=== PATIENT | female | born 1965 | race Caucasian/White ===

== ENCOUNTER 2017-08-25 08:40 | Inpatient (IN) | payer BC ==
[~2017-08-25] VITALS: Ht 160 cm; Wt 64.0 kg
[~2017-08-25 08:40] MED LIST: VALS320T2
[2017-08-25] MEDS ORDERED: SODIUM CHLORIDE 0.9% 1,000ML IVBOLUS ONE (09:30)
[2017-08-25] MEDS ORDERED: METOCLOPRAMIDE 5 MG/ML, 2ML IVPush ONE (09:30)
[2017-08-25] MEDS ORDERED: SODIUM CHLORIDE FLUSH 10ML SYR IVF ONE (09:30)
[2017-08-25] MEDS ORDERED: LORazepam 2 MG/ML, 1ML IVPush ONE ×2 (09:30→11:30)
[2017-08-25] MEDS ORDERED: METOCLOPRAMIDE 5 MG/ML, 2ML ONE (09:42)
[2017-08-25] MEDS ORDERED: LORazepam 2 MG/ML, 1ML ONE (09:43)
[2017-08-25] MEDS ORDERED: DIPHENHYDRAMINE 50 MG/ML, 1ML ONE (09:43)
[2017-08-25 09:51] LABS: BASOPHILS # (AUTO) 0.01 x10^3/uL (0-0.1); BASOPHILS % (AUTO) 0 % (0-1); EOSINOPHILS # (AUTO) 0.03 x10^3/uL (0-0.4); EOSINOPHILS % (AUTO) 0 % (1-7); LYMPHOCYTES # (AUTO) 0.64 x10^3/uL (1-3.4); LYMPHOCYTES % (AUTO) 7 % (22-44); MD NO; MEAN CORPUSCULAR HEMOGLOBIN 36.9 pg (27.0-34.8); MEAN CORPUSCULAR HGB CONC 34.8 g/dL (32.4-35.8); MEAN CORPUSCULAR VOLUME 106.2 fL (80-100); MEAN PLATELET VOLUME 7.6 fL (7.4-10.4); MONOCYTES # (AUTO) 0.77 x10^3/uL (0.2-0.8); MONOCYTES % (AUTO) 8 % (2-9); NEUTROPHILS # (AUTO) 8.54 x10^3/uL (1.8-6.8); NEUTROPHILS % (AUTO) 86 % (42-75); PLATELET COUNT 135 x10^3/uL (130-400); RED BLOOD COUNT 4.16 x10^6/uL (3.82-5.3); RED CELL DISTRIBUTION WIDTH 12.7 % (9.6-15.2)
[2017-08-25 10:00] LABS: ALANINE AMINOTRANSFERASE 72 U/L (12-78); ALBUMIN 4.1 g/dL (3.4-5.0); ANION GAP 26 mmol/L (5-15); CALCIUM 9.1 mg/dL (8.5-10.1); CHLORIDE 86 mmol/L (98-107); CREATININE 1.04 mg/dL (0.55-1.02)
[2017-08-25 10:01] LABS: SALICYLATE LEVEL < 1.7 mg/dL (2.8-20.0)
[2017-08-25 10:05] LABS: ACETAMINOPHEN < 2 mcg/mL (10-30); ALKALINE PHOSPHATASE 103 U/L (45-117); BILIRUBIN,TOTAL 1.5 mg/dL (0.2-1.0); TOTAL PROTEIN 8.8 g/dL (6.4-8.2); TROPONIN I < 0.015 ng/mL (0.000-0.045)
[2017-08-25 11:07] LABS: MICROSCOPIC AUTO
[2017-08-25 11:08] LABS: CULTURE INDICATED? YES
[2017-08-25 11:18] LABS: AMPHETAMINE SCREEN, URINE Negative (Negative); BARBITURATE SCREEN, URINE Negative (Negative); BENZODIAZEPINE SCREEN, URINE Negative (Negative); CANNABINOID SCREEN, URINE Negative (Negative); COCAINE SCREEN, URINE Negative (Negative); METHADONE SCREEN, URINE Negative (Negative); OPIATE SCREEN, URINE Negative (Negative)
[2017-08-25] MEDS ORDERED: LACTATED RINGERS 1,000 ML IVBOLUS ONE (11:30)
[2017-08-25 12:21] VITALS: BP 123/78
[2017-08-25] MEDS ORDERED: ONDANSETRON ODT 4 MG PO PRN (13:30)
[2017-08-25] MEDS ORDERED: LORazepam 2 MG/ML, 1ML IV PRN ×5 (13:30)
[2017-08-25] MEDS ORDERED: LORazepam 0.5MG TABLET PO PRN (13:30)
[2017-08-25] MEDS ORDERED: LABETALOL 5MG/ML, 20ML IVPush PRN (13:30)
[2017-08-25] MEDS ORDERED: LORazepam 1MG TABLET PO PRN ×4 (13:30)
[2017-08-25] MEDS ORDERED: ONDANSETRON 2MG/ML, 2ML IVPush PRN (13:30)
[2017-08-25] MEDS ORDERED: cloniDINE 0.1MG PATCH TD SCH (14:00)
[2017-08-25] MEDS: RANITIDINE 50 MG in SODIUM CHLORIDE 0.9% 100 ML IV SCH ×2 (14:43→22:41)
[2017-08-25] MEDS: POTASSIUM CHLORIDE 20 MEQ, MAGNESIUM SULFATE 1 GM, FOLIC ACID 1 MG, THIAMINE 100 MG, MV... IV SCH (14:43)
[2017-08-25 14:57] VITALS: BP 122/81
[2017-08-25] MEDS: ENOXAPARIN 40 MG/0.4 ML SQ SCH (16:27)
[2017-08-25] MEDS: GABAPENTIN 100 MG CAPSULE PO SCH ×2 (16:28→22:41)
[2017-08-25] MEDS ORDERED: POTASSIUM CHLORIDE 20 MEQ TAB.ER.PRT PO ONE (17:00)
[2017-08-25 18:18] LABS: ALBUMIN 3.3 g/dL (3.4-5.0); ANION GAP 22 mmol/L (5-15); CALCIUM 8.2 mg/dL (8.5-10.1); CHLORIDE 94 mmol/L (98-107); CREATININE 0.83 mg/dL (0.55-1.02)
[2017-08-25 18:40] VITALS: BP 131/85
[2017-08-25] MEDS: CEFTRIAXONE PMX 1GM/50ML 50 ML IV SCH (18:44)
[2017-08-25] MEDS: METOPROLOL TARTRATE 25 MG TABLET PO SCH ×2 (18:45→18:49)
[2017-08-25] MEDS ORDERED: FAMOTIDINE 20 MG/2 ML IVPush SCH (21:00)
[2017-08-26 01:59] VITALS: BP 121/80
[2017-08-26 05:09] LABS: BASOPHILS # (AUTO) 0.03 x10^3/uL (0-0.1); BASOPHILS % (AUTO) 0 % (0-1); EOSINOPHILS # (AUTO) 0.06 x10^3/uL (0-0.4); EOSINOPHILS % (AUTO) 1 % (1-7); LYMPHOCYTES # (AUTO) 0.97 x10^3/uL (1-3.4); LYMPHOCYTES % (AUTO) 11 % (22-44); MD NO; MEAN CORPUSCULAR HEMOGLOBIN 36.2 pg (27.0-34.8); MEAN CORPUSCULAR HGB CONC 34.3 g/dL (32.4-35.8); MEAN CORPUSCULAR VOLUME 105.6 fL (80-100); MONOCYTES # (AUTO) 0.86 x10^3/uL (0.2-0.8); MONOCYTES % (AUTO) 10 % (2-9); NEUTROPHILS # (AUTO) 6.56 x10^3/uL (1.8-6.8); NEUTROPHILS % (AUTO) 77 % (42-75); PLATELET COUNT 125 x10^3/uL (130-400); RED BLOOD COUNT 3.77 x10^6/uL (3.82-5.3); RED CELL DISTRIBUTION WIDTH 12.8 % (9.6-15.2)
[2017-08-26 05:10] LABS: ALANINE AMINOTRANSFERASE 50 U/L (12-78); ALBUMIN 3.5 g/dL (3.4-5.0); ANION GAP 15 mmol/L (5-15); CALCIUM 8.5 mg/dL (8.5-10.1); CHLORIDE 98 mmol/L (98-107); CREATININE 1.19 mg/dL (0.55-1.02)
[2017-08-26 05:12] LABS: ALKALINE PHOSPHATASE 79 U/L (45-117); BILIRUBIN,TOTAL 1.2 mg/dL (0.2-1.0); TOTAL PROTEIN 7.4 g/dL (6.4-8.2)
[2017-08-26 06:13] VITALS: BP 113/63
[2017-08-26] MEDS: RANITIDINE 50 MG in SODIUM CHLORIDE 0.9% 100 ML IV SCH (06:17)
[2017-08-26] MEDS: METOPROLOL TARTRATE 25 MG TABLET PO SCH ×2 (06:17→18:44)
[2017-08-26 06:38] VITALS: BP 136/91
[2017-08-26] MEDS ORDERED: MAGNESIUM SULFATE PMX 4GM/100M 100 ML IV ONE (07:00)
[2017-08-26 07:45] LABS: FREE T4 (FREE THYROXINE) 0.95 ng/dL (0.76-1.46)
[2017-08-26 07:56] LABS: FOLATE LEVEL > 20.0 ng/mL (3.1-17.5)
[2017-08-26] MEDS ORDERED: SODIUM PHOSPHATE 4 MEQ/ML IV SCH (08:00)
[2017-08-26] MEDS ORDERED: SODIUM PHOSPHATE 30 MMOL in SODIUM CHLORIDE 0.9% 500 ML IV ONE (08:30)
[2017-08-26] MEDS ORDERED: POTASSIUM PHOSPHATE 44 MEQ in SODIUM CHLORIDE 0.9% 500 ML IV ONE (09:30)
[2017-08-26] MEDS: GABAPENTIN 100 MG CAPSULE PO SCH ×3 (09:47→21:57)
[2017-08-26] MEDS: OMEPRAZOLE 20 MG CAPSULE.DR PO SCH (09:47)
[2017-08-26 12:36] VITALS: BP 126/87
[2017-08-26] MEDS: CEFTRIAXONE PMX 1GM/50ML 50 ML IV SCH (17:08)
[2017-08-26] MEDS: ENOXAPARIN 40 MG/0.4 ML SQ SCH (17:18)
[2017-08-26 19:16] VITALS: BP 131/86
[2017-08-26] MEDS: POTASSIUM CHLORIDE 20 MEQ, MAGNESIUM SULFATE 1 GM, FOLIC ACID 1 MG, THIAMINE 100 MG, MV... IV SCH (20:20)
[2017-08-27 01:14] VITALS: BP 130/93
[2017-08-27 05:12] VITALS: BP 143/92
[2017-08-27] MEDS: METOPROLOL TARTRATE 25 MG TABLET PO SCH ×2 (05:15→17:19)
[2017-08-27 05:54] LABS: BASOPHILS # (AUTO) 0.01 x10^3/uL (0-0.1); BASOPHILS % (AUTO) 0 % (0-1); EOSINOPHILS # (AUTO) 0.15 x10^3/uL (0-0.4); EOSINOPHILS % (AUTO) 3 % (1-7); LYMPHOCYTES # (AUTO) 0.76 x10^3/uL (1-3.4); LYMPHOCYTES % (AUTO) 17 % (22-44); MD NO; MEAN CORPUSCULAR HEMOGLOBIN 36.1 pg (27.0-34.8); MEAN CORPUSCULAR HGB CONC 34.3 g/dL (32.4-35.8); MEAN CORPUSCULAR VOLUME 105.2 fL (80-100); MONOCYTES % (AUTO) 11 % (2-9); NEUTROPHILS # (AUTO) 3.18 x10^3/uL (1.8-6.8); NEUTROPHILS % (AUTO) 69 % (42-75); PLATELET COUNT 107 x10^3/uL (130-400); RED BLOOD COUNT 3.25 x10^6/uL (3.82-5.3); RED CELL DISTRIBUTION WIDTH 12.9 % (9.6-15.2)
[2017-08-27 06:04] LABS: CHLORIDE 103 mmol/L (98-107)
[2017-08-27 06:18] LABS: ALANINE AMINOTRANSFERASE 38 U/L (12-78); ALBUMIN 2.8 g/dL (3.4-5.0); ALKALINE PHOSPHATASE 67 U/L (45-117); ANION GAP 11 mmol/L (5-15); BILIRUBIN,TOTAL 0.9 mg/dL (0.2-1.0); CALCIUM 7.9 mg/dL (8.5-10.1); CREATININE 0.73 mg/dL (0.55-1.02); TOTAL PROTEIN 6.4 g/dL (6.4-8.2)
[2017-08-27 08:00] VITALS: BP 144/98
[2017-08-27] MEDS: GABAPENTIN 100 MG CAPSULE PO SCH ×2 (08:09→17:19)
[2017-08-27] MEDS: OMEPRAZOLE 20 MG CAPSULE.DR PO SCH (08:09)
[2017-08-27] MEDS ORDERED: MULTIVITAMINS/MINERALS TABLET PO SCH ×2 (09:00→09:30)
[2017-08-27] MEDS ORDERED: SODIUM PHOSPHATE 30 MMOL in SODIUM CHLORIDE 0.9% 500 ML IV ONE (09:30)
[2017-08-27] MEDS ORDERED: THIAMINE 100MG TABLET PO SCH (09:30)
[2017-08-27] MEDS ORDERED: FOLIC ACID 1 MG TABLET PO SCH (09:30)
[2017-08-27] MEDS: POTASSIUM CHLORIDE 20 MEQ TAB.ER.PRT PO SCH ×2 (10:31→17:19)
[2017-08-27] MEDS: CEFDINIR 300 MG CAPSULE PO SCH ×2 (10:31→17:19)
[2017-08-27] MEDS ORDERED: FOLI-17 PO (13:36)
[2017-08-27] MEDS ORDERED: THIA100T6 PO (13:36)
[2017-08-27] MEDS ORDERED: METO25TA35 PO (13:36)
[2017-08-27] MEDS ORDERED: MULT-484 PO (13:36)
[2017-08-27] MEDS ORDERED: POTASSIUM CHLORIDE 20 MEQ TAB.ER.PRT PO SCH (17:00)
[2017-08-27] MEDS: ENOXAPARIN 40 MG/0.4 ML SQ SCH (17:00)
== END 2017-08-27 17:42 | disposition home or self-care (01) | DRG 897 ==
LOC: ED 10:02 → EDIP 11:12 → 4WST 11:58
PROVIDERS: ADMIT Internal Medicine; ATTEND Internal Medicine
DX: F10.229 Alcohol dependence with intoxication, unspecified (principal); E87.2 Acidosis; E87.8 Other disorders of electrolyte and fluid balance, not elsewhere classified; E44.0 Moderate protein-calorie malnutrition; E83.39 Other disorders of phosphorus metabolism; I31.3 Pericardial effusion (noninflammatory); E87.1 Hypo-osmolality and hyponatremia; N39.0 Urinary tract infection, site not specified; W18.30XA Fall on same level, unspecified, initial encounter; F10.239 Alcohol dependence with withdrawal, unspecified; D75.89 Other specified diseases of blood and blood-forming organs; E86.0 Dehydration; E87.6 Hypokalemia; I10 Essential (primary) hypertension; K21.9 Gastro-esophageal reflux disease without esophagitis; K76.0 Fatty (change of) liver, not elsewhere classified; F41.8 Other specified anxiety disorders; R45.4 Irritability and anger; R74.0 Nonspecific elevation of levels of transaminase and lactic acid dehydrogenase [LDH]; R79.89 Other specified abnormal findings of blood chemistry; Z68.25 Body mass index [BMI] 25.0-25.9, adult; Z80.52 Family history of malignant neoplasm of bladder; Z82.49 Family history of ischemic heart disease and other diseases of the circulatory system; Z83.3 Family history of diabetes mellitus
CPT/HCPCS: 36415; 70450; 71045; 76700; 80048; 80053; 80307; 80329; 81001; 82040; 82140; 82607; 82746; 83735; 84100; 84439; 84443; 84484; 85025; 87086; 93005; 93306; 93880; 99285; J0696; J1650; J2780; J3411; J3475; J3480; J7042; Q0162; G0480; J2060; J2765; J7030; J7040; J7120

== ENCOUNTER 2019-04-24 18:31 | Inpatient (IN) | payer BC ==
[~2019-04-24] VITALS: Ht 160 cm; Wt 66.4 kg
[~2019-04-24 18:31] MED LIST changes: +FOLI-17 PO; +METO25TA35 PO; +MULT-484 PO; +THIA100T67 PO
[2019-04-24] MEDS ORDERED: PANTOPRAZOLE 80 MG in SODIUM CHLORIDE 0.9% 50 ML IVPB ONE (18:54)
[2019-04-24] MEDS ORDERED: ONDANSETRON 2MG/ML, 2ML ONE (18:59)
[2019-04-24] MEDS ORDERED: THIAMINE 100 MG in SODIUM CHLORIDE 0.9% 50 ML IVPB ONE (19:00)
[2019-04-24] MEDS ORDERED: SODIUM CHLORIDE 0.9% 1,000ML IVBOLUS ONE (19:00)
[2019-04-24] MEDS ORDERED: FAMOTIDINE 20 MG/2 ML ONE (19:00)
[2019-04-24] MEDS ORDERED: LORazepam 2 MG/ML, 1ML ONE ×2 (19:00→19:50)
[2019-04-24] MEDS ORDERED: PANTOPRAZOLE 80 MG in SODIUM CHLORIDE 0.9% 100 ML IV SCH (19:00)
[2019-04-24] MEDS ORDERED: SODIUM CHLORIDE FLUSH 10ML SYR IVF ONE (19:00)
[2019-04-24] MEDS ORDERED: ONDANSETRON 2MG/ML, 2ML IVPush ONE (19:00)
[2019-04-24] MEDS ORDERED: FAMOTIDINE 20 MG/2 ML IVPush ONE (19:00)
[2019-04-24] MEDS: LORazepam 2 MG/ML, 1ML IVPush PRN ×3 (19:05→21:28)
[2019-04-24 19:14] LABS: INTERNATIONAL NORMALIZED RATIO 1.1 (0.93-1.1); PROTHROMBIN TIME 11.5 Seconds (9.6-11.5)
[2019-04-24 19:15] LABS: ALANINE AMINOTRANSFERASE 91 U/L (12-78); ALBUMIN 3.8 g/dL (3.4-5.0); ANION GAP 22 mmol/L (5-15); CALCIUM 8.6 mg/dL (8.5-10.1); CHLORIDE 85 mmol/L (98-107); CREATININE 0.99 mg/dL (0.55-1.02)
[2019-04-24 19:17] LABS: ALKALINE PHOSPHATASE 91 U/L (45-117); BILIRUBIN,TOTAL 1.6 mg/dL (0.2-1.0); TOTAL PROTEIN 7.6 g/dL (6.4-8.2)
[2019-04-24 19:18] LABS: MEAN CORPUSCULAR HEMOGLOBIN 35.4 pg (27.0-34.8); MEAN PLATELET VOLUME 7.6 fL (7.4-10.4); PLATELET COUNT 77 x10^3/uL (130-400); RED CELL DISTRIBUTION WIDTH 13.9 % (9.6-15.2)
[2019-04-24 19:21] LABS: BASOPHILS # (AUTO) 0.01 x10^3/uL (0-0.1); BASOPHILS % (AUTO) 0 % (0-1); EOSINOPHILS # (AUTO) 0.04 x10^3/uL (0-0.4); EOSINOPHILS % (AUTO) 1 % (1-7); LYMPHOCYTES # (AUTO) 0.33 x10^3/uL (1-3.4); LYMPHOCYTES % (AUTO) 5 % (22-44); MD MORPH REVIEW ONLY; MONOCYTES # (AUTO) 0.49 x10^3/uL (0.2-0.8); MONOCYTES % (AUTO) 7 % (2-9); NEUTROPHILS # (AUTO) 6.54 x10^3/uL (1.8-6.8); NEUTROPHILS % (AUTO) 88 % (42-75)
[2019-04-24 19:22] LABS: <PLATELET ESTIMATE> DECREASED; <PLT MORPHOLOGY> NORMAL PLT MORPH
[2019-04-24] MEDS ORDERED: NS + 40MEQ KCL 1,000 ML IV ONE (19:33)
--- NOTE | 2019-04-24 19:41 | NUR ---
REPORT RECEIVED FROM BREAK NURSE. THIS IS A 53 YO FEMALE BIBA FOR NEAR SYNCOPAL EPISODE. PER BREAK RN, PATIENT HAS DARK STOOLS AND VOMITING BLOOD. PATIENT STATES LAST DRINK WAS AT 1600, PATIENT APPEARS SHAKEY. PATIENT IS A&0X4, RESPIRATIONS ARE EVEN AND UNLABORED, PLACED ON SWITCHBOARD INSTALLER, SINUS TACHYCARDIA NOTED, PATIENT'S SKIN IS COOL. VSS AT THIS TIME. CONTINUOUS SPO2 AT 96%, CYCLE BP Q1HR.
--- NOTE | 2019-04-24 20:02 | NUR ---
PATIENT MEDICATED PER EMAR, TOELRATED WELL. DENIES NEEDS AT THIS TIME, CALL LIGHT IN REACH.
--- NOTE | 2019-04-24 20:09 | NUR ---
REPORT GIVEN TO [facility]. PLAN OF CARE DISCUSSED.
[2019-04-24] MEDS ORDERED: BISACODYL 10 MG SUPP PR PRN (21:00)
[2019-04-24] MEDS ORDERED: ONDANSETRON ODT 4 MG PO PRN (21:00)
[2019-04-24] MEDS ORDERED: POLYETHYLENE GLYCOL 17 GM PACKET PO PRN (21:00)
[2019-04-24 21:30] VITALS: BP 123/80
[2019-04-24] MEDS ORDERED: MAGNESIUM SULFATE PMX 2GM/50ML 50 ML IV ONE (21:30)
[2019-04-24 22:00] VITALS: BP 123/80
[2019-04-24] MEDS: NS + 40MEQ KCL 1,000 ML IV SCH (22:06)
[2019-04-24] MEDS: THIAMINE 100MG TABLET PO SCH (22:07)
[2019-04-24] MEDS: METOPROLOL TARTRATE 25 MG TABLET PO SCH (22:08)
[2019-04-24] MEDS: PANTOPRAZOLE 80 MG in SODIUM CHLORIDE 0.9% 100 ML IV SCH (22:09)
[2019-04-25] VITALS (11 sets, daily range): BP systolic 117–138; BP diastolic 70–89
[2019-04-25] MEDS: LORazepam 2 MG/ML, 1ML IV PRN ×2 (01:29→12:43)
[2019-04-25] MEDS ORDERED: LORazepam 1MG TABLET PO PRN ×3 (01:30)
[2019-04-25] MEDS ORDERED: LORazepam 0.5MG TABLET PO PRN (01:30)
[2019-04-25] MEDS ORDERED: LORazepam 2 MG/ML, 1ML IV PRN ×2 (01:30)
[2019-04-25 02:05] LABS: MEAN CORPUSCULAR HEMOGLOBIN 35.5 pg (27.0-34.8); MEAN CORPUSCULAR HGB CONC 33.9 g/dL (32.4-35.8); MEAN CORPUSCULAR VOLUME 104.9 fL (80-100); MEAN PLATELET VOLUME 7.5 fL (7.4-10.4); PLATELET COUNT 62 x10^3/uL (130-400); RED BLOOD COUNT 2.56 x10^6/uL (3.82-5.3); RED CELL DISTRIBUTION WIDTH 13.8 % (9.6-15.2)
[2019-04-25 02:15] LABS: ALANINE AMINOTRANSFERASE 70 U/L (12-78); ALBUMIN 3.2 g/dL (3.4-5.0); ANION GAP 14 mmol/L (5-15); CALCIUM 7.7 mg/dL (8.5-10.1); CHLORIDE 94 mmol/L (98-107); CREATININE 1.02 mg/dL (0.55-1.02)
[2019-04-25] MEDS: NS + 40MEQ KCL 1,000 ML IV SCH ×3 (02:16→16:09)
[2019-04-25 02:17] LABS: ALKALINE PHOSPHATASE 71 U/L (45-117); BILIRUBIN,TOTAL 1.7 mg/dL (0.2-1.0); TOTAL PROTEIN 6.4 g/dL (6.4-8.2)
[2019-04-25 02:18] LABS: BASOPHILS # (AUTO) 0.02 x10^3/uL (0-0.1); BASOPHILS % (AUTO) 0 % (0-1); EOSINOPHILS % (AUTO) 0 % (1-7); LYMPHOCYTES # (AUTO) 0.63 x10^3/uL (1-3.4); LYMPHOCYTES % (AUTO) 8 % (22-44); MD SCAN; MONOCYTES # (AUTO) 0.84 x10^3/uL (0.2-0.8); MONOCYTES % (AUTO) 10 % (2-9); NEUTROPHILS # (AUTO) 6.66 x10^3/uL (1.8-6.8); NEUTROPHILS % (AUTO) 82 % (42-75)
[2019-04-25] MEDS: PANTOPRAZOLE 80 MG in SODIUM CHLORIDE 0.9% 100 ML IV SCH ×2 (05:04→16:09)
[2019-04-25] MEDS: METOPROLOL TARTRATE 25 MG TABLET PO SCH ×2 (05:18→18:04)
[2019-04-25 08:30] LABS: MEAN CORPUSCULAR HEMOGLOBIN 35.2 pg (27.0-34.8); MEAN CORPUSCULAR HGB CONC 34.4 g/dL (32.4-35.8); MEAN CORPUSCULAR VOLUME 102.3 fL (80-100); MEAN PLATELET VOLUME 8.2 fL (7.4-10.4); PLATELET COUNT 66 x10^3/uL (130-400); RED BLOOD COUNT 2.38 x10^6/uL (3.82-5.3); RED CELL DISTRIBUTION WIDTH 14.1 % (9.6-15.2)
[2019-04-25] MEDS: SENNA/DOCUSATE TABLET PO SCH (09:00)
[2019-04-25] MEDS ORDERED: OCTREOTIDE 50 MCG/ML, 1ML (0.05MG/ML) IVPush ONE (09:00)
[2019-04-25 09:18] LABS: BASOPHILS # (AUTO) 0.01 x10^3/uL (0-0.1); BASOPHILS % (AUTO) 0 % (0-1); EOSINOPHILS % (AUTO) 0 % (1-7); LYMPHOCYTES # (AUTO) 0.75 x10^3/uL (1-3.4); LYMPHOCYTES % (AUTO) 11 % (22-44); MD SCAN; MONOCYTES # (AUTO) 0.75 x10^3/uL (0.2-0.8); MONOCYTES % (AUTO) 11 % (2-9); NEUTROPHILS # (AUTO) 5.44 x10^3/uL (1.8-6.8); NEUTROPHILS % (AUTO) 78 % (42-75)
[2019-04-25] MEDS: OCTREOTIDE 500 MCG in SODIUM CHLORIDE 0.9% 249 ML IV SCH ×2 (09:47→22:05)
[2019-04-25 12:08] LABS: BASOPHILS # (AUTO) 0.02 x10^3/uL (0-0.1); BASOPHILS % (AUTO) 0 % (0-1); EOSINOPHILS # (AUTO) 0.01 x10^3/uL (0-0.4); EOSINOPHILS % (AUTO) 0 % (1-7); LYMPHOCYTES # (AUTO) 0.83 x10^3/uL (1-3.4); LYMPHOCYTES % (AUTO) 12 % (22-44); MD NO; MEAN CORPUSCULAR HGB CONC 34.2 g/dL (32.4-35.8); MEAN CORPUSCULAR VOLUME 102.4 fL (80-100); MEAN PLATELET VOLUME 8.1 fL (7.4-10.4); MONOCYTES # (AUTO) 0.75 x10^3/uL (0.2-0.8); MONOCYTES % (AUTO) 10 % (2-9); NEUTROPHILS # (AUTO) 5.58 x10^3/uL (1.8-6.8); NEUTROPHILS % (AUTO) 78 % (42-75); PLATELET COUNT 72 x10^3/uL (130-400); RED BLOOD COUNT 2.26 x10^6/uL (3.82-5.3); RED CELL DISTRIBUTION WIDTH 13.9 % (9.6-15.2)
[2019-04-25] MEDS ORDERED: FENTANYL PF 100 MCG/2ML ONE (13:09)
[2019-04-25] MEDS ORDERED: MIDAZOLAM 1 MG/ML, 2ML ONE (13:09)
[2019-04-25] MEDS ORDERED: PROPOFOL 50 ML ONE (13:10)
[2019-04-25] MEDS ORDERED: EPINEPHRINE SYRINGE 0.1 MG/ML, 10ML ONE (13:59)
[2019-04-25] MEDS ORDERED: METOPROLOL 1 MG/ML, 5ML IV PRN (14:00)
[2019-04-25] MEDS ORDERED: FENTANYL PF 100 MCG/2ML IV PRN (14:00)
[2019-04-25] MEDS ORDERED: HYDROmorphone 2 MG/ML, 1ML IVPush PRN (14:00)
[2019-04-25] MEDS ORDERED: PROMETHAZINE 25 MG/ML, 1ML IV PRN (14:00)
[2019-04-25] MEDS ORDERED: MIDAZOLAM 1 MG/ML, 2ML IV PRN (14:00)
[2019-04-25] MEDS ORDERED: OXYcodone 5 MG/5 ML ORAL.SOL UDC PO PRN (14:00)
[2019-04-25] MEDS ORDERED: MEPERIDINE/PF 25MG/ML,1ML IVPush PRN (14:00)
[2019-04-25 16:14] LABS: MEAN CORPUSCULAR HEMOGLOBIN 35.4 pg (27.0-34.8); MEAN CORPUSCULAR HGB CONC 34.3 g/dL (32.4-35.8); MEAN CORPUSCULAR VOLUME 103.2 fL (80-100); MEAN PLATELET VOLUME 7.5 fL (7.4-10.4); PLATELET COUNT 55 x10^3/uL (130-400); RED BLOOD COUNT 1.96 x10^6/uL (3.82-5.3); RED CELL DISTRIBUTION WIDTH 13.8 % (9.6-15.2)
[2019-04-25 16:26] LABS: BASOPHILS # (AUTO) 0.01 x10^3/uL (0-0.1); BASOPHILS % (AUTO) 0 % (0-1); EOSINOPHILS # (AUTO) 0.01 x10^3/uL (0-0.4); EOSINOPHILS % (AUTO) 0 % (1-7); LYMPHOCYTES # (AUTO) 0.86 x10^3/uL (1-3.4); LYMPHOCYTES % (AUTO) 17 % (22-44); MD SCAN; MONOCYTES # (AUTO) 0.42 x10^3/uL (0.2-0.8); MONOCYTES % (AUTO) 9 % (2-9); NEUTROPHILS % (AUTO) 74 % (42-75)
[2019-04-25] MEDS: FOLIC ACID 1 MG TABLET PO SCH (18:04)
[2019-04-25] MEDS: THIAMINE 100MG TABLET PO SCH ×2 (18:04→21:31)
[2019-04-25] MEDS: MULTIVITAMINS/MINERALS TABLET PO SCH (21:29)
[2019-04-25 23:13] LABS: MEAN CORPUSCULAR HEMOGLOBIN 34.2 pg (27.0-34.8); MEAN CORPUSCULAR HGB CONC 34.2 g/dL (32.4-35.8); MEAN CORPUSCULAR VOLUME 100.2 fL (80-100); MEAN PLATELET VOLUME 8.2 fL (7.4-10.4); PLATELET COUNT 70 x10^3/uL (130-400); RED BLOOD COUNT 2.66 x10^6/uL (3.82-5.3); RED CELL DISTRIBUTION WIDTH 15.7 % (9.6-15.2)
[2019-04-25 23:50] LABS: BASOPHILS # (AUTO) 0.03 x10^3/uL (0-0.1); BASOPHILS % (AUTO) 0 % (0-1); EOSINOPHILS # (AUTO) 0.08 x10^3/uL (0-0.4); EOSINOPHILS % (AUTO) 1 % (1-7); LYMPHOCYTES # (AUTO) 0.68 x10^3/uL (1-3.4); LYMPHOCYTES % (AUTO) 10 % (22-44); MD SCAN; MONOCYTES # (AUTO) 0.44 x10^3/uL (0.2-0.8); MONOCYTES % (AUTO) 7 % (2-9); NEUTROPHILS # (AUTO) 5.43 x10^3/uL (1.8-6.8); NEUTROPHILS % (AUTO) 82 % (42-75)
[2019-04-26] VITALS (7 sets, daily range): BP systolic 114–153; BP diastolic 77–97
[2019-04-26] MEDS: NS + 40MEQ KCL 1,000 ML IV SCH (02:28)
[2019-04-26 03:24] LABS: ANION GAP 6 mmol/L (5-15); CALCIUM 7.9 mg/dL (8.5-10.1); CHLORIDE 107 mmol/L (98-107)
[2019-04-26 03:28] LABS: CREATININE 0.69 mg/dL (0.55-1.02)
[2019-04-26] MEDS: PANTOPRAZOLE 80 MG in SODIUM CHLORIDE 0.9% 100 ML IV SCH (03:31)
[2019-04-26] MEDS: METOPROLOL TARTRATE 25 MG TABLET PO SCH ×4 (06:00→22:22)
[2019-04-26] MEDS: SENNA/DOCUSATE TABLET PO SCH (09:00)
[2019-04-26] MEDS: MULTIVITAMINS/MINERALS TABLET PO SCH (09:17)
[2019-04-26] MEDS: THIAMINE 100MG TABLET PO SCH ×2 (09:17→20:12)
[2019-04-26] MEDS: FOLIC ACID 1 MG TABLET PO SCH (09:17)
[2019-04-26] MEDS: LORazepam 1MG TABLET PO PRN ×2 (09:25→16:26)
[2019-04-26] MEDS: OCTREOTIDE 500 MCG in SODIUM CHLORIDE 0.9% 249 ML IV SCH (11:33)
[2019-04-26] MEDS: SODIUM PHOSPHATE 30 MMOL in SODIUM CHLORIDE 0.9% 500 ML IV SCH ×2 (12:27→22:12)
[2019-04-26] MEDS: NEUTRA PHOS K 250 MG TABLET PO SCH ×3 (12:33→20:12)
[2019-04-26] MEDS ORDERED: PANTOPRAZOLE 40 MG IV IVPush SCH (16:00)
[2019-04-26] MEDS: LORazepam 2 MG/ML, 1ML IV PRN (20:12)
[2019-04-26] MEDS: PANTOPRAZOLE 40 MG IV IVPush SCH (20:13)
[2019-04-26] MEDS ORDERED: NS + 40MEQ KCL 1,000 ML IV SCH (21:24)
[2019-04-27 03:03] VITALS: BP 113/77
[2019-04-27] MEDS: LORazepam 2 MG/ML, 1ML IV PRN ×5 (04:28→16:57)
[2019-04-27 07:08] LABS: ANION GAP 11 mmol/L (5-15); CALCIUM 7.6 mg/dL (8.5-10.1); CHLORIDE 105 mmol/L (98-107)
[2019-04-27 07:12] LABS: % IRON SATURATION 13 % (20-55); ALANINE AMINOTRANSFERASE 94 U/L (12-78); ALKALINE PHOSPHATASE 67 U/L (45-117); BILIRUBIN,TOTAL 1.1 mg/dL (0.2-1.0); CREATININE 0.68 mg/dL (0.55-1.02); IRON LEVEL 31 mcg/dL (50-170); TOTAL IRON BINDING CAPACITY 231 mcg/dL (250-450)
[2019-04-27 08:26] VITALS: BP 152/80
[2019-04-27] MEDS: METOPROLOL TARTRATE 25 MG TABLET PO SCH ×4 (08:55→22:04)
[2019-04-27] MEDS: THIAMINE 100MG TABLET PO SCH ×2 (08:55→22:04)
[2019-04-27] MEDS: FOLIC ACID 1 MG TABLET PO SCH (08:56)
[2019-04-27] MEDS: MULTIVITAMINS/MINERALS TABLET PO SCH (08:57)
[2019-04-27] MEDS: SENNA/DOCUSATE TABLET PO SCH (09:00)
[2019-04-27] MEDS: PANTOPRAZOLE 40 MG IV IVPush SCH ×2 (09:03→21:31)
[2019-04-27] MEDS ORDERED: MAGNESIUM SULFATE PMX 2GM/50ML 50 ML IV ONE (10:00)
[2019-04-27] MEDS: CHLORDIAZEPOXIDE 25 MG CAPSULE PO SCH ×4 (10:20→22:03)
[2019-04-27] MEDS: POTASSIUM CHLORIDE 40 MEQ in D5%-0.9% NACL 1,000 ML IV SCH ×2 (10:23→23:13)
[2019-04-27 12:05] VITALS: BP 128/87
[2019-04-27 16:31] VITALS: BP 137/84
[2019-04-27 20:25] VITALS: BP 139/91
[2019-04-27 22:00] VITALS: BP 130/86
[2019-04-28 00:41] VITALS: BP 139/89
[2019-04-28] MEDS: LORazepam 2 MG/ML, 1ML IV PRN (01:55)
[2019-04-28] MEDS: CHLORDIAZEPOXIDE 25 MG CAPSULE PO SCH ×4 (05:56→21:00)
[2019-04-28 07:41] LABS: ANION GAP 4 mmol/L (5-15); CALCIUM 8.5 mg/dL (8.5-10.1); CHLORIDE 107 mmol/L (98-107); CREATININE 0.59 mg/dL (0.55-1.02)
[2019-04-28 07:51] LABS: MEAN CORPUSCULAR HEMOGLOBIN 34.1 pg (27.0-34.8); MEAN CORPUSCULAR HGB CONC 33.6 g/dL (32.4-35.8); MEAN CORPUSCULAR VOLUME 101.6 fL (80-100); MEAN PLATELET VOLUME 7.4 fL (7.4-10.4); PLATELET COUNT 158 x10^3/uL (130-400); RED BLOOD COUNT 2.73 x10^6/uL (3.82-5.3); RED CELL DISTRIBUTION WIDTH 16.3 % (9.6-15.2)
[2019-04-28 07:52] LABS: BASOPHILS # (AUTO) 0.01 x10^3/uL (0-0.1); BASOPHILS % (AUTO) 0 % (0-1); EOSINOPHILS # (AUTO) 0.29 x10^3/uL (0-0.4); EOSINOPHILS % (AUTO) 5 % (1-7); LYMPHOCYTES # (AUTO) 1.05 x10^3/uL (1-3.4); LYMPHOCYTES % (AUTO) 19 % (22-44); MD SCAN; MONOCYTES # (AUTO) 0.69 x10^3/uL (0.2-0.8); MONOCYTES % (AUTO) 12 % (2-9); NEUTROPHILS # (AUTO) 3.57 x10^3/uL (1.8-6.8); NEUTROPHILS % (AUTO) 64 % (42-75)
[2019-04-28] MEDS: METOPROLOL TARTRATE 25 MG TABLET PO SCH ×3 (08:39→21:00)
[2019-04-28] MEDS: PANTOPRAZOLE 40 MG IV IVPush SCH ×2 (08:39→20:26)
[2019-04-28] MEDS: SENNA/DOCUSATE TABLET PO SCH (08:39)
[2019-04-28] MEDS: FOLIC ACID 1 MG TABLET PO SCH (08:39)
[2019-04-28] MEDS: MULTIVITAMINS/MINERALS TABLET PO SCH (08:39)
[2019-04-28] MEDS: THIAMINE 100MG TABLET PO SCH ×2 (08:40→20:26)
[2019-04-28] MEDS: POTASSIUM CHLORIDE 40 MEQ in D5%-0.9% NACL 1,000 ML IV SCH ×2 (11:36→21:48)
[2019-04-28 14:16] VITALS: BP 96/68
[2019-04-28 17:11] VITALS: BP 100/70
[2019-04-28 19:45] VITALS: BP 102/67
[2019-04-28 20:18] VITALS: BP 98/64
[2019-04-28 20:24] VITALS: BP 94/66
[2019-04-29 01:49] VITALS: BP 112/77
[2019-04-29 05:25] LABS: ALANINE AMINOTRANSFERASE 94 U/L (12-78); ALBUMIN 2.8 g/dL (3.4-5.0); ANION GAP 6 mmol/L (5-15); BASOPHILS # (AUTO) 0.02 x10^3/uL (0-0.1); BASOPHILS % (AUTO) 0 % (0-1); CALCIUM 8.5 mg/dL (8.5-10.1); CHLORIDE 109 mmol/L (98-107); CREATININE 0.68 mg/dL (0.55-1.02); EOSINOPHILS # (AUTO) 0.26 x10^3/uL (0-0.4); EOSINOPHILS % (AUTO) 5 % (1-7); LYMPHOCYTES # (AUTO) 1.26 x10^3/uL (1-3.4); LYMPHOCYTES % (AUTO) 24 % (22-44); MD NO; MEAN CORPUSCULAR HEMOGLOBIN 35.3 pg (27.0-34.8); MEAN CORPUSCULAR HGB CONC 33.9 g/dL (32.4-35.8); MEAN CORPUSCULAR VOLUME 104.1 fL (80-100); MEAN PLATELET VOLUME 7.5 fL (7.4-10.4); MONOCYTES # (AUTO) 1.06 x10^3/uL (0.2-0.8); MONOCYTES % (AUTO) 20 % (2-9); NEUTROPHILS # (AUTO) 2.75 x10^3/uL (1.8-6.8); NEUTROPHILS % (AUTO) 51 % (42-75); PLATELET COUNT 236 x10^3/uL (130-400); RED CELL DISTRIBUTION WIDTH 16.5 % (9.6-15.2)
[2019-04-29 05:27] LABS: ALKALINE PHOSPHATASE 77 U/L (45-117); BILIRUBIN,TOTAL 0.9 mg/dL (0.2-1.0)
[2019-04-29] MEDS ORDERED: MAGNESIUM SULFATE PMX 2GM/50ML 50 ML IV ONE (07:30)
[2019-04-29] MEDS ORDERED: PANT40TA5 PO (07:51)
[2019-04-29] MEDS ORDERED: METO25TA91 PO (07:51)
[2019-04-29 07:57] VITALS: BP 122/66
[2019-04-29 08:24] VITALS: BP 120/83
[2019-04-29] MEDS: CHLORDIAZEPOXIDE 25 MG CAPSULE PO SCH (09:00)
[2019-04-29] MEDS: PANTOPRAZOLE 40 MG IV IVPush SCH (09:38)
[2019-04-29] MEDS: SENNA/DOCUSATE TABLET PO SCH (09:39)
[2019-04-29] MEDS: FOLIC ACID 1 MG TABLET PO SCH (09:39)
[2019-04-29] MEDS: MULTIVITAMINS/MINERALS TABLET PO SCH (09:39)
[2019-04-29] MEDS: METOPROLOL TARTRATE 25 MG TABLET PO SCH (09:39)
[2019-04-29] MEDS: THIAMINE 100MG TABLET PO SCH (09:40)
[2019-04-29] MEDS ORDERED: FLU VACC QS2019-20 36MOS UP/PF 0.5 ML IM-VACC ONE (11:30)
[2019-04-29] MEDS ORDERED: CHLO25CA9 PO (11:32)
== END 2019-04-29 11:41 | disposition home or self-care (01) | DRG 368 ==
LOC: ED 18:57 → EDIP 19:32 → 5SO 21:20 → DCLOUNGE 04-29 11:30
PROVIDERS: ADMIT Internal Medicine; ATTEND Internal Medicine
PROC: 30233N1 Transfusion of Nonautologous Red Blood Cells into Peripheral Vein, Percutaneous Approach (ICD-10-PCS; 2019-04-25)
PROC: 3E0G8GC Introduction of Other Therapeutic Substance into Upper GI, Via Natural or Artificial Opening Endoscopic (ICD-10-PCS; principal; 2019-04-25 11:15)
DX: K22.6 Gastro-esophageal laceration-hemorrhage syndrome (principal); K85.20 Alcohol induced acute pancreatitis without necrosis or infection; E43 Unspecified severe protein-calorie malnutrition; E87.1 Hypo-osmolality and hyponatremia; K22.10 Ulcer of esophagus without bleeding; E87.2 Acidosis; D62 Acute posthemorrhagic anemia; D75.89 Other specified diseases of blood and blood-forming organs; E83.42 Hypomagnesemia; E87.6 Hypokalemia; F10.129 Alcohol abuse with intoxication, unspecified; Y90.9 Presence of alcohol in blood, level not specified; I10 Essential (primary) hypertension; K29.20 Alcoholic gastritis without bleeding; K44.9 Diaphragmatic hernia without obstruction or gangrene; K70.10 Alcoholic hepatitis without ascites; S70.01XA Contusion of right hip, initial encounter; X58.XXXA Exposure to other specified factors, initial encounter; Y93.89 Activity, other specified; Y92.89 Other specified places as the place of occurrence of the external cause; Y99.8 Other external cause status; Z79.899 Other long term (current) drug therapy; Z82.49 Family history of ischemic heart disease and other diseases of the circulatory system; Z83.3 Family history of diabetes mellitus
CPT/HCPCS: 36415; 73502; 96365; 96368; 96375; 99291; J3490; J7042; 36430; 80048; 80053; 80307; 82140; 82330; 82607; 82728; 83540; 83550; 83605; 83690; 83735; 84100; 85014; 85018; 85025; 85610; 85730; 86850; 86900; 86923; 87389; 93005; G0378; J2250; J2354; J2405; J2704; J3010; J3411; J3480; Q0162; C9113; J2060; J3475; J7030; J7040; J7050; P9016